=== PATIENT | male | born 1970 | race Caucasian/White ===

== ENCOUNTER 2017-09-15 19:06 | Emergency (ER) | payer OTHER | END 2017-09-15 19:48 | disposition left against medical advice (07) | LOC: M.ERS 19:06 | DX: F10.129 Alcohol abuse with intoxication, unspecified (principal) ==

== ENCOUNTER 2018-03-01 19:58 | Emergency (ER) | payer OTHER ==
[~2018-03-01] VITALS: Ht 180.3 cm; Wt 49.9 kg
[2018-03-01 20:15] LABS: ABSOLUTE EOSINOPHILS 0.3 thou/uL (0.0-0.7); ABSOLUTE LYMPHOCYTES 1.4 thou/uL (0.8-5.3); ABSOLUTE MONOCYTES 0.7 thou/uL (0.0-1.2); ABSOLUTE NEUTROPHILS 3.3 thou/uL (1.6-8.1); BASOPHILS 0.8 %; EOSINOPHILS 4.5 %; HEMATOCRIT 48.1 % (42.0-52.0); HEMOGLOBIN 16.4 gm/dL (14.0-18.0); LYMPHOCYTES 25.4 %; MCH 31.9 pg (26.0-34.0); MCHC 34.2 g/dL (28.0-37.0); MCV 93.3 fL (80.0-100.0); MONOCYTES 11.5 %; MPV 9.8 fl. (7.2-11.1); NUCLEATED RBCS 0 /100WBC; PLATELET COUNT* 174 thou/uL (150-400); POLYS 57.8 %; RBC 5.16 mil/uL (4.50-6.00); RDW-CV 13.2 % (10.5-14.5); WBC 5.7 thou/uL (4.0-11.0)
[2018-03-01 20:24] LABS: APTT 26.5 Seconds (25.0-31.3); PROTIME 10.7 Seconds (9.20-11.50)
[2018-03-01 20:37] LABS: ANION GAP 13 mmol/L (7-16); BUN 17 mg/dL (7-18); CALCIUM 8.4 mg/dL (8.5-10.1); CHLORIDE 103 mmol/L (98-107); CO2 26 mmol/L (21-32); CREATININE 1.2 mg/dL (0.6-1.3); GLUCOSE 95 mg/dL (70-99); POTASSIUM 3.5 mmol/L (3.5-5.1); SODIUM 142 mmol/L (136-145)
[2018-03-01 20:42] LABS: ALCOHOL 245 mg/dL (<10); SALICYLATE < 2.8 mg/dL (2.8-20.0)
[2018-03-01 20:45] LABS: ALBUMIN 3.6 g/dL (3.4-5.0); ALKALINE PHOSPHATASE 84 U/L (46-116); CK-MB MASS 5.8 ng/mL (<0.5-3.6); NT-PRO BRAIN NAT PEPTIDE 12 pg/mL (<300); SGOT 29 U/L (15-37); SGPT 33 U/L (30-65); TOTAL BILIRUBIN 0.3 mg/dL (<0.1-1.0); TOTAL PROTEIN 7.1 g/dL (6.4-8.2); TROPONIN-I LEVEL <0.06 ng/mL (<0.06)
[2018-03-01 20:59] LABS: URINE BILIRUBIN NEGATIVE (Negative); URINE BLOOD NEGATIVE (Negative); URINE CLARITY CLEAR; URINE COLOR YELLOW; URINE GLUCOSE-RANDOM NEGATIVE (Negative); URINE KETONES TRACE (Negative); URINE LEUKOCYTES-REFLEX NEGATIVE (Negative); URINE NITRITE-REFLEX NEGATIVE (Negative); URINE PROTEIN TRACE (Negative); URINE SPECIFIC GRAVITY >= 1.030 (1.005-1.030); URINE UROBILINOGEN 0.2 E.U./dl (0.2-1.0)
[2018-03-01 21:12] LABS: AMP/METHAMP POSITIVE (Negative); BARBITURATES Negative (Negative); BENZODIAZEPINES POSITIVE (Negative); COCAINE Negative (Negative); METHADONE Negative (Negative); OPIATES Negative (Negative); PCP Negative (Negative); THC POSITIVE (Negative)
[2018-03-02] VITALS: BP 96/51
--- NOTE | 2018-03-02 12:26 | EKG ---
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 : 1970 Requested By: Milo Osei Order Number: [id number] MD: Isaias Cerda Measurements Intervals [place] Rate: 90 P: 91 SC: 250 QRS: 107 QRSD: 91 T: 64 QT: 394 QTc: 482 Interpretive Statements Sinus rhythm Prolonged SC interval Biatrial enlargement Right axis deviation ST elev, probable normal early repol pattern Borderline prolonged QT interval No previous ECG available for comparison Electronically Signed On 03-02-2018 12:26:32 [employer]IDE [employer] by Isaias Cerda [email or web address] <ELECTRONICALLY SIGNED> By: Isaias Cerda MD, [facility] 03/02/18 1226 01 01 Isaias Cerda MD, [facility] /EPI
[2018-03-02 15:59] LABS: ACETAMINOPHEN < 2 ug/mL (10-30)
== END 2018-03-02 | disposition home or self-care (01) ==
LOC: M.ERS 19:58 → EDBD 19:58 → M.ERS 19:58
PROVIDERS: Family Medicine
DX: F10.129 Alcohol abuse with intoxication, unspecified (principal); Y90.8 Blood alcohol level of 240 mg/100 ml or more; F15.10 Other stimulant abuse, uncomplicated